=== PATIENT | male | born 1955 | race Caucasian/White ===

== ENCOUNTER 2016-06-17 09:40 | Emergency (ER) | payer OTHER ==
[~2016-06-17] VITALS: Ht 188 cm; Wt 136.1 kg
--- NOTE | 2016-06-17 09:52 | NUR ---
Patient to ER bed 1 to gown for evaluation. Side rails up. Report given to Rahel HUTCHINSON.
[2016-06-17 09:53] VITALS: BP 147/84; PULSE 93; RESP 16; TEMP 97.4; O2SAT 96
--- NOTE | 2016-06-17 09:58 | NUR ---
DR HILL AT BEDSIDE FOR EVALUATION
[2016-06-17] MEDS ORDERED: KETOROLAC TROMETHAMINE 60 MG/2 ML VIAL IM ONE (10:00)
[2016-06-17] MEDS ORDERED: ONDANSETRON 4 MG ODT TAB PO ONE (10:00)
[2016-06-17] MEDS ORDERED: fentaNYL CITRATE/PF 100 MCG/2 ML AMP IM ONE (10:00)
--- NOTE | 2016-06-17 10:00 | NUR ---
PT C/O RIGHT SHOULDER PAIN SINCE YESTERDAY, AFTER CLEANING POOL. LIMITED ROM WITHOUT PAIN
--- NOTE | 2016-06-17 10:02 | NUR ---
TAKEN TO RADIOLOGY VIA AMBULATORY
--- NOTE | 2016-06-17 10:11 | NUR ---
BROUGHT BACK FROM RADIOLOGY
--- NOTE | 2016-06-17 10:15 | NUR ---
MEDICATED ORDERED. WILL MONITOR
--- NOTE | 2016-06-17 10:55 | NUR ---
RESTING, NO CHANGES
[2016-06-17] MEDS ORDERED: HYDROcodone/ACETAMIN 5-325 MG TAB (NORCO/ VICODIN) PO ONE (11:00)
--- NOTE | 2016-06-17 11:40 | NUR ---
CARE ENDORSED TO HARI
--- NOTE | 2016-06-17 12:49 | NUR ---
Patient given written and verbal discharge instructions and verbalizes understanding. ER MD dr. kilgore discussed with patient the results and treatment provided. Patient in stable condition. ID arm band removed. Rx of norco and motrin given. Patient educated on pain management and to follow up with PMD. Pain Scale 0/10 Opportunity for questions provided and answered.
[2016-06-17 12:50] VITALS: BP 139/79; PULSE 82; RESP 16; TEMP 97.4; O2SAT 98
== END 2016-06-17 12:50 | disposition home or self-care (01) ==
LOC: SED 09:40
DX: M75.31 Calcific tendinitis of right shoulder (principal); Z88.4 Allergy status to anesthetic agent
CPT/HCPCS: 73030; 96372; 99284; J1885; J3010; Q0162